=== PATIENT | male | born 1965 | race Caucasian/White ===

== ENCOUNTER 2023-03-27 12:37 | Outpatient (CLI) | payer BC ==
[2023-03-27] MEDS ORDERED: Iopamidol 300 61% 100 ML VIAL FS ONE (14:00)
[2023-03-27] MEDS ORDERED: EPINEPHrine 1 MG/ML AMP ONE (14:00)
[2023-03-27] MEDS ORDERED: Lidocaine 1% PF 5 ML VIAL ONE (14:00)
[2023-03-27] MEDS ORDERED: Sodium Chloride 0.9% 50 ML BAG ONE (14:00)
== END 2023-03-27 12:38 | disposition home or self-care (01) ==
LOC: RAD 12:37
PROVIDERS: ATTEND Orthopaedic Surgery
DX: M19.012 Primary osteoarthritis, left shoulder (principal); M75.102 Unspecified rotator cuff tear or rupture of left shoulder, not specified as traumatic; M25.412 Effusion, left shoulder
CPT/HCPCS: 23350; J0171; Q9967

== ENCOUNTER 2023-07-14 07:59 | Outpatient (CLI) | payer BC ==
[2023-07-14 08:56] LABS: Prothrombin Time 10.5 sec (9.5-12.1)
[2023-07-14 08:59] LABS: Anion Gap 13 mmol/L (10-20); BUN (Urea Nitrogen) 20 mg/dL (8.4-25.7); Calc. Creatinine Clearance 0 mL/min (70-130); Calcium 8.8 mg/dL (7.8-10.44); Carbon Dioxide 24 mmol/L (22-29); Chloride 107 mmol/L (98-107); Estimated GFR 102; Potassium 4.3 mmol/L (3.5-5.1); Sodium 140 mmol/L (136-145)
[2023-07-14 09:02] LABS: #Basophils 0.1 10x3/uL (0.0-0.2); #Eosinphils 0.2 10x3/uL (0.0-0.5); #Monocytes 0.7 10x3/uL (0.0-1.1); #Neutrophils 5.1 10x3/uL (1.5-8.4); %Eosinophils 2.1 % (0.0-6.0); %Lymphocytes 21.7 % (18.0-47.0); %Monocytes 8.9 % (0.0-10.0); %Neutrophils 66.2 % (40.0-75.0); Hematocrit 45.3 % (38.8-50.0); Hemoglobin 15.5 g/dL (13.5-17.5); Mean Corpuscular HGB CONC 34.2 g/dL (32.0-36.0); Mean Corpuscular Hemoglobin 30.5 pg (27.0-33.0); Mean Corpuscular Volume 89.2 fl (81.2-95.1); Mean Platelet Volume 11.3 fl (7.4-10.4); Platelet Count 228 10x3/uL (150-450); RBC Distribution Width 12.2 % (11.5-14.5); Red Blood Cell (RBC) Count 5.08 10x6/uL (4.32-5.72); White Blood Cell (WBC) Count 7.7 10x3/uL (3.5-10.5)
[2023-07-14 09:03] LABS: Glucose 50 mg/dL (70-105)
== END 2023-07-14 08:00 | disposition home or self-care (01) ==
LOC: LABBT 07:59
PROVIDERS: ATTEND Orthopaedic Surgery
DX: Z01.818 Encounter for other preprocedural examination (principal); M19.012 Primary osteoarthritis, left shoulder
CPT/HCPCS: 80048; 85025; 85610; 93005; 93010

== ENCOUNTER 2023-07-17 06:52 | Observation (INO) | payer BC ==
[2023-07-14 08:31] VITALS: BMI 28.7
[2023-07-17] MEDS ORDERED: Midazolam HCl 2 mg/2 ml Vial ONE (07:40)
[2023-07-17] MEDS ORDERED: fentaNYL 50 mcg/mL 1 mL Vial ONE ×2 (07:40→09:56)
[2023-07-17] MEDS ORDERED: Tranexamic Acid 1,000 MG/10 ML VIAL ONE (08:39)
[2023-07-17] MEDS ORDERED: Vancomycin (BATCH) 1.5 GM/300 ML BAG ONE (08:39)
[2023-07-17] MEDS ORDERED: Sodium Chloride 0.9% 100 ML ONE ×2 (08:39→10:03)
[2023-07-17] MEDS ORDERED: Ropivacaine 0.5% HCl/PF (150 MG/30 ML VIAL) ONE (09:15)
[2023-07-17] MEDS ORDERED: fentaNYL 50 mcg/mL 1 mL Vial SLOW IVP PRN (09:43)
[2023-07-17] MEDS ORDERED: Zolpidem Tartrate 5 MG TAB PO PRN (09:45)
[2023-07-17] MEDS ORDERED: Ondansetron PF 4 MG/2 ML Vial IVP PRN (09:45)
[2023-07-17] MEDS ORDERED: traMADol HCl 50 MG TAB PO PRN (09:45)
[2023-07-17] MEDS ORDERED: Promethazine HCl 25 MG/ML VIAL IM PRN (09:45)
[2023-07-17] MEDS ORDERED: HYDROcodone/Acetaminophen 10/325 mg Tablet PO PRN (09:45)
[2023-07-17] MEDS ORDERED: Ropivacaine 0.2% 550 ML 550 ML NERVE BLCK SCH (09:45)
[2023-07-17] MEDS ORDERED: PROPOFOL 40 ML ONE (09:56)
[2023-07-17] MEDS ORDERED: Dexamethasone 20 MG/5 ML VIAL ONE (09:57)
[2023-07-17] MEDS ORDERED: Rocuronium Bromide 10 MG/ML (10ML VIAL) ONE (09:57)
[2023-07-17] MEDS ORDERED: Ondansetron PF 4 MG/2 ML Vial ONE (09:57)
[2023-07-17] MEDS ORDERED: CEFAZOLIN 2 GM VIAL ONE (10:03)
[2023-07-17] MEDS ORDERED: SUGAMMADEX SODIUM 200 MG/2 ML VIAL ONE (10:06)
[2023-07-17] MEDS ORDERED: ePHEDrine Sulfate 50 MG/10 ML VIAL ONE (10:41)
[2023-07-17] MEDS ORDERED: Lidocaine 2% PF 5 ML VIAL ONE (11:46)
[2023-07-17] MEDS ORDERED: Ketorolac Tromethamine 30 MG (1 mL) VIAL ONE (12:16)
[2023-07-17] MEDS ORDERED: Bisacodyl 10 MG SUPP PR PRN (13:15)
[2023-07-17] MEDS ORDERED: Methocarbamol 1 GM (10 mL) VIAL SLOW IVP PRN (13:15)
[2023-07-17] MEDS ORDERED: Milk Of Magnesia 30 ML UDCUP PO PRN (13:15)
[2023-07-17] MEDS ORDERED: diphenhydrAMINE 50 MG CAP PO PRN (13:15)
[2023-07-17] MEDS ORDERED: Methocarbamol 500 MG TAB PO PRN (13:15)
[2023-07-17] MEDS ORDERED: Acetaminophen 325 MG TAB PO PRN (13:15)
[2023-07-17] MEDS: Lactated Ringer's 1,000 ML IV SCH (14:55)
[2023-07-17] MEDS: CEFAZOLIN 2 GM in Sodium Chloride 0.9% 100 ML IVPB SCH (17:55)
[2023-07-17] MEDS: Famotidine 20 MG TAB PO SCH (19:50)
[2023-07-18] MEDS: traMADol HCl 50 MG TAB PO PRN (00:23)
[2023-07-18] MEDS: HYDROcodone/Acetaminophen 10/325 mg Tablet PO PRN (02:05)
[2023-07-18 06:03] VITALS: TEMP 98.1
[2023-07-18 08:17] VITALS: BP 115/76
== END 2023-07-18 10:25 | disposition home or self-care (01) ==
LOC: SDC 06:52 → SURG A 12:55
PROVIDERS: ADMIT Orthopaedic Surgery; ATTEND Orthopaedic Surgery
PROC: 0RRK0JZ Replacement of Left Shoulder Joint with Synthetic Substitute, Open Approach (ICD-10-PCS; principal; 2023-07-17)
DX: M19.012 Primary osteoarthritis, left shoulder (principal); M75.22 Bicipital tendinitis, left shoulder; Z79.890 Hormone replacement therapy; Z79.899 Other long term (current) drug therapy; Z98.890 Other specified postprocedural states
CPT/HCPCS: A4306; C1713; C1776; C1889; J1100; J1885; J2001; J2250; J2405; J2704; J2795; J3010; J3370; J3490; J7120